=== PATIENT | male | born 1980 | race African-American/Black ===

== ENCOUNTER 2019-08-06 20:27 | Emergency (ER) | payer MEDICAID ==
[~2019-08-06] VITALS: Ht 185.4 cm; Wt 117.9 kg
[2019-08-06 20:19] VITALS: BP 154/111
--- NOTE | 2019-08-06 20:19 | NUR ---
ED Nurse Note: PT JAMAR ALICIA 58 D/T SMOKING THC PRIOR TO ARRIVAL ON A BUS. PT STATES HE'S FEELING ANXIOUS AND DIZZY
--- NOTE | 2019-08-06 20:45 | Emergency Room Report ---
History of Present Illness General Chief Complaint: anxiety Source: Patient Present Illness HPI Patient is a 38-year-old male presents after increased anxiety after smoking marijuana. He reports having prior history of hypertension for which he takes clonidine. He reports taking his blood pressure medications. He subsequently stated that he felt better. He states that he had been using a vaporizer pen of marijuana. He denies any cough or shortness of breath currently. Episode was brief in nature. He had been brought in by EMS. Allergies: Coded Allergies: No Known Allergies (Unverified , 08/06/19) Patient History Past Medical History: see triage record Reviewed Nursing Documentation: PMH: Agreed; PSxH: Agreed Nursing Documentation-PMH Past Medical History: No History, Except For Hx Hypertension: Yes Review of Systems All Other Systems: negative except mentioned in HPI Physical Exam Vital Signs Date Time Temp Pulse Resp B/P (MAP) Pulse Ox O2 Delivery O2 Flow Rate FiO2 08/06/19 20:13 98.6 123 20 154/111 (125) 100 Room Air General Appearance: well appearing, no apparent distress, alert, GCS 15, non- toxic Head: normocephalic, atraumatic ENT: hearing grossly normal, normal voice Neck: full range of motion, supple Respiratory: chest non-tender, lungs clear, normal breath sounds, no respiratory distress, speaking full sentences Cardiovascular #1: normal inspection, normal peripheral pulses, regular rate, rhythm Gastrointestinal: normal inspection, normal bowel sounds, non tender, soft Musculoskeletal: normal inspection Neurologic: normal inspection, alert, oriented x3, responsive, normal gait Psychiatric: mood/affect normal Skin: no rash Medical Decision Making Diagnostic Impression: Primary Impression: Marijuana smoker ER Course Patient presented for palpitations. The differential diagnosis included was not limited to arrhythmia, thyroid storm, sepsis, anemia, myocardial infarction , alcohol withdrawal, stimulant abuse, caffeine overdose among others. Patient has a benign exam and does not appear to require any imaging or laboratory testing at this time. Patient does not appear to require any testing at this time. The patient's symptoms appear to be related to marijuana use. His lung sounds are equal and does not have any evidence of pneumothorax. patient states he feels better and wants to go home. Last Vital Signs Date Time Temp Pulse Resp B/P (MAP) Pulse Ox O2 Delivery O2 Flow Rate FiO2 08/06/19 20:19 98.6 123 20 154/111 100 Room Air Status: improved Disposition: HOME, SELF-CARE Condition: Stable Anthony Hernandez MD Aug 06, 2019 20:45
[2019-08-06 20:55] VITALS: BP 145/89
--- NOTE | 2019-08-06 20:55 | NUR ---
ER DISCHARGE NOTE: Patient is cleared to be discharged per ERMD, pt is aox4, on room air, with stable vital signs. pt was given dc instructions, pt was able to verbalize understanding, pt id band removed. pt is able to ambulate with steady gait. pt took all belongings.
== END 2019-08-06 20:55 | disposition home or self-care (01) ==
LOC: EDBD 20:27 → EMR 20:54
DX: F12.10 Cannabis abuse, uncomplicated (principal); F41.9 Anxiety disorder, unspecified; I10 Essential (primary) hypertension
CPT/HCPCS: 99282